=== PATIENT | female | born 1950 | race African-American/Black ===

== ENCOUNTER 2022-04-24 07:02 | Emergency (ER) | payer MEDICARE, MEDICAID ==
[~2022-04-24] VITALS: Ht 167.6 cm; Wt 64.0 kg
[2022-04-24] MEDS ORDERED: MECLIZINE 25MG TABLET PO ONE (08:15)
[2022-04-24] MEDS ORDERED: SODIUM CHLORIDE 0.9% 1,000 ML IV ONE (08:15)
[2022-04-24 08:17] LABS: BASOPHILS % 0.4 % (0.0-2.0); EOSINOPHILS % 1.7 % (0.0-5.0); HEMATOCRIT. 36.4 % (36.0-48.0); HEMOGLOBIN. 11.7 g/dL (12.0-16.0); LYMPHOCYTES % 48.6 % (20.0-50.0); MEAN CORPUSCULAR HEMOGLOBIN 26.3 pg (28.0-32.0); MEAN CORPUSCULAR VOLUME 81.9 fL (81.0-99.0); MEAN PLATELET VOLUME 8.8 fl (7.4-10.4); NEUTROPHILS % 42.3 % (40.0-76.0); PLATELET 186 x1000/uL (130-400); RED BLOOD CELL COUNT 4.45 mill/uL (4.2-5.4); RED CELL DISTRIBUTION WIDTH 13.6 % (11.6-14.6)
[2022-04-24 08:23] LABS: CHLORIDE 109 mEq/L (98-107)
[2022-04-24] MEDS ORDERED: ASPIRIN 325MG EC TABLET PO ONE (09:00)
[2022-04-24] MEDS ORDERED: ENOXAPARIN 40MG/0.4ML SYR SUBCUT SCH (10:30)
[2022-04-24] MEDS ORDERED: ONDANSETRON HCL 4MG/2ML INJ IV PRN (10:30)
[2022-04-24] MEDS ORDERED: ACETAMINOPHEN 325MG TABLET PO PRN ×2 (10:30)
[2022-04-24] MEDS ORDERED: HYDROCODONE/ACETAMINOPHEN 5/325MG TABLET PO PRN (10:30)
[2022-04-24] MEDS ORDERED: MAGNESIUM/ALUMINUM HYDROXIDE/SIMETHICONE 30ML UDC PO PRN (10:30)
[2022-04-24] MEDS ORDERED: GUAIFENESIN 200MG/10ML SUGAR FREE UDC PO PRN (10:30)
[2022-04-24] MEDS ORDERED: CLONIDINE 0.1MG TABLET PO PRN (10:30)
[2022-04-24 11:22] LABS: T4 FREE 0.99 ng/dL (0.76-1.46)
[2022-04-24 11:46] LABS: FOLIC ACID (FOLATE) SERUM 16.3 ng/mL (>5.38)
[2022-04-24 12:02] LABS: CLARITY URINE CLEAR (CLEAR); COLOR URINE YELLOW (YELLOW); KETONES URINE NEGATIVE (NEGATIVE); LEUKOCYTE ESTERASE URINE NEGATIVE (NEGATIVE); NITRITE URINE NEGATIVE (NEGATIVE); OCCULT BLOOD URINE NEGATIVE (NEGATIVE); PH URINE 6.5 (4.5-8.0); PROTEIN URINE NEGATIVE (NEGATIVE); SPECIFIC GRAVITY URINE 1.011 (1.005-1.030); UROBILINOGEN URINE 0.2 E.U./dL (0.2-1.0)
[2022-04-24] MEDS ORDERED: MECLIZINE 25MG TABLET PO NR (13:00)
[2022-04-24 13:05] VITALS: BP 157/61
== END 2022-04-24 13:53 | disposition left against medical advice (07) ==
LOC: ER 07:02 → SUPCPDRO 10:01 → EDBEDREQTM 10:30 → EDBEDREQ 10:30 → CANRESERV 12:26 → ENRESERV 12:26 → ER 13:53 → CANBEDREQ 14:07
DX: R42 Dizziness and giddiness (principal); R41.82 Altered mental status, unspecified; R00.0 Tachycardia, unspecified; I95.9 Hypotension, unspecified
CPT/HCPCS: 36415; 70450; 71045; 80053; 81003; 82607; 82728; 82746; 83036; 83540; 83550; 83880; 84439; 84443; 84484; 85025; 85044; 93005; 96360; 96361; 96372; 99285; J1650; J7030; J8597